=== PATIENT | male | born 1950 | race Caucasian/White ===

== ENCOUNTER 2017-10-14 11:23 | Inpatient (IN) | payer MEDICARE, OTHER ==
[2017-10-14 11:23] VITALS: BMI 19.1
--- NOTE | 2017-10-14 11:33 | C.PDOC ---
History Of Present Illness Patient BIBA s/p witnessed cardiac arrest at hemodialysis. Patient had just started HD, (+) witnessed arrest, CPR started immediately, AED did not recommend shocks. Patient given epi x 2, emergently intubated by medics, given Versed 5mg IVP for sedation (starting to bite tube). Time Seen by Provider: 10/14/17 11:29 Chief Complaint (Nursing): Cardiac Arrest History Per: EMS Reason For Code Blue: Full Arrest Circumstances: Brought To ED By EMS Arrest Witnessed By: Nurse (dialysis) CPR Initiated Prior To MD Arrival?: Yes Down-Time Before ACLS: Mins (15) Treatment Initiated Prior To MD Arrival: Yes: CPR, BVM Ventilations, Intubation , IVF, ACLS Medication Initiation, IV Access Medications Given Prior To MD Arrival: Yes: Epinephrine (x2), Other ([id number] IVP) - Initial Findings Mentation: Unresponsive Respirations: None (Assisted) Pulse: Strong Rhythm: Sinus Rhythm Past Medical History Reviewed: Historical Data, Nursing Documentation, Vital Signs Vital Signs: Last Vital Signs Temp 97.3 F L 10/15/17 00:00 Pulse 66 10/15/17 02:00 Resp 14 10/15/17 02:00 BP 53/24 L 10/15/17 02:00 Pulse Ox 92 L 10/14/17 20:59 - Medical History PMH: Anemia, Anxiety, Arthritis, Asthma, CHF, COPD, Depression, Diabetes, HTN (& hypotension), Hypercholesterolemia, Pneumonia, End Stage Renal Disease, Chronic Kidney Disease Surgical History: Coronary Stent (x2) - [facility] Procedures (08/21/17) BED MOBILITY TREATMENT (12/10/16) CORONAR ARTERIOGR-2 CATH (02/16/15) DETACHMENT AT RIGHT 1ST TOE, LOW, OPEN APPROACH (08/03/17) DETACHMENT AT RIGHT FOOT, PARTIAL 1ST RAY, OPEN APPROACH (09/16/17) DETACHMENT AT RIGHT FOOT, PARTIAL 2ND RAY, OPEN APPROACH (09/16/17) DETACHMENT AT RIGHT FOOT, PARTIAL 3RD RAY, OPEN APPROACH (09/16/17) DETACHMENT AT RIGHT FOOT, PARTIAL 4TH RAY, OPEN APPROACH (09/16/17) DETACHMENT AT RIGHT FOOT, PARTIAL 5TH RAY, OPEN APPROACH (09/16/17) DIALYSIS ARTERIOVENOSTOM (09/14/13) DILATION OF R ANT TIB ART WITH 2 DRUG-ELUT, PERC APPROACH (08/03/17) DRESSING TECHNIQUES TREATMENT (08/08/17) ESOPHAGOGASTRODUODENOSCOPY [EGD] W/CLOSED BIOPSY (09/14/13) EXERCISE TREATMENT OF MUSCULOSK LOW BACK/LE USING OTH EQUIP (12/10/16) FLUOROSCOPY OF AORTA, BI LE ART USING OTH CONTRAST (08/03/17) GAIT TRAINING/AMBULAT TREATMENT USING ASSIST EQUIPMENT (08/08/17) GROOMING/PERSONAL HYGIENE TREATMENT (08/08/17) HEMODIALYSIS (09/14/13) HOME MANAGEMENT TREATMENT USING ASSIST EQUIPMENT (12/10/16) INJECT/INFUSE PLATELET INHIBITOR (07/11/14) INSERTION OF INFUSION DEV INTO SUP VENA CAVA, PERC APPROACH (07/19/17) INSERTION OF ONE VASCULAR STENT (07/11/14) INSPECTION OF UPPER INTESTINAL TRACT, ENDO (04/14/16) INSRT OF DRUG-ELUTING CORON ARTERY STENTS(S) (07/11/14) INTRODUCE OF OTH THERAP SUBST INTO RESP TRACT, VIA OPENING (08/03/17) LEFT HEART CARDIAC CATH (02/16/15) LT HEART ANGIOCARDIOGRAM (02/16/15) NEBULIZER THERAPY (07/11/14) PERCUTANEOUS TRANSLUMINAL CORONARY ANGIOPLASTY [PTCA] (07/11/14) PERFORMANCE OF URINARY FILTRATION, MULTIPLE (02/10/17) PERFORMANCE OF URINARY FILTRATION, SINGLE (01/04/17) PROCEDURE ON SINGLE VESSEL (07/11/14) THERAPEUTIC EXERCISE TREATMENT OF MUSCULOSK WHOLE (08/08/17) ULTRASONOGRAPHY OF SUPERIOR VENA CAVA, GUIDANCE (07/19/17) Family History: States: No Known Family Hx - Social History Hx Tobacco Use: No Hx Alcohol Use: No Hx Substance Use: No - Immunization History Hx Tetanus Toxoid Vaccination: No Hx Influenza Vaccination: No Hx Pneumococcal Vaccination: No Review Of Systems Review Of Systems: ROS cannot be obtained secondary to pt's inabilty to answer questions. Physical Exam - Physical Exam Appears: Other Skin: Other (chronic skin changes B/L LEs) Head: Atraumatic, Normacephalic Eye(s): right: Other (right pupil irregular and nonreactive), left: Normal Inspection Oral Mucosa: Moist, Other (ET tube in place, 24cm at lip) Cardiovascular: Rhythm Regular Respiratory: Other (equal breath sounds B/L ) Gastrointestinal/Abdominal: Normal Exam, Bowel Sounds, Soft, No Tenderness Extremity: Pedal Edema (+2 pitting edema B/L LEs), Other (dressings on feet B/L ) ED Course And Treatment - Laboratory Results Result Diagrams: 10/15/17 01:42 10/15/17 01:42 ECG: Interpreted By Me, Viewed By Me (NSR 85 bpm, low voltage QRS, Q waves II, III, aVF, no acute ST changes) ECG Interpretation: Abnormal O2 Sat by Pulse Oximetry: 100 (FiO2 100) Pulse Ox Interpretation: Normal - Radiology CXR: Interpreted by Me, Viewed By Me (right mainstem intubation, OG below diaphragm - tube pulled back 2cm by me) Progress Note: Blood work, EKG, CXR, CT head ordered and reviewed. OG tube inserted by me, (+) epigastric gurgle auscultated - CXR pending. Prior to going to CT scan, patient began to have bradycardia (given atropine 0.5mg) and then lost pulse. CPR started, epi x 1 and bicarb x 1 given. (+) ROSC after 1 round. IV dopamine started via peripheral line. Patient's BP continued to drop , right sided femoral central line placed by me for pressors - IV Levophed started. Dr. Donovan automotive wholesale parts advisor spoken with and accepts patient for ICU admission. - Physician Consult Information Physician Contacted: Jasmeet Gr Outcome Of Conversation: Spoke with PMD, agrees with admission to his service with Dr. Chavarria for cardiology. Disposition - Disposition Disposition: HOSPITALIZED Disposition Time: 12:18 Condition: CRITICAL - Clinical Impression Clinical Impression: Cardiac arrest, ESRD on dialysis, Signs of return of spontaneous circulation Decision To Admit - Pt Status Changed To: Hospital Disposition Of: Inpatient - Admit Certification Admit to Inpatient:: After my assessment, the patient will require hospitalization for at least two midnights. This is because of the severity of symptoms shown, intensity of services needed, and/or the medical risk in this patient being treated as an outpatient. - InPatient: Physician Admission Certification:: see notes - . Bed Request Type: ICU Admitting Physician: Jasmeet Gr Patient Diagnosis: Cardiac arrest, ESRD on dialysis, Signs of return of spontaneous circulation
[2017-10-14 11:38] LABS: BASO # 0.1 K/uL (0.0-0.2); BASO % 0.6 % (0.0-2.0); EOS % 0.4 % (0.0-4.0); HEMOGLOBIN 9.1 g/dL (12.0-18.0); LYMPH # 1.6 K/uL (1.0-4.3); LYMPH % 15.4 % (20.0-40.0); MEAN CORPUSCULAR HEMOGLOBIN 30.1 pg (27.0-31.0); MEAN CORPUSCULAR HGB CONC 31.8 g/dL (33.0-37.0); MONO # 0.6 K/uL (0.0-0.8); NEUT % 77.6 % (50.0-75.0); NRBC % 0.1 % (0.0-2.0); RBC 3.03 Mil/uL (4.40-5.90); RED CELL DISTRIBUTION WIDTH 18.2 % (11.5-14.5); WHITE BLOOD COUNT 10.3 K/uL (4.8-10.8)
[2017-10-14 11:45] LABS: MEAN CELL VOLUME 94.5 fL (80.0-94.0)
[2017-10-14 11:48] LABS: INR 1.4
[2017-10-14] MEDS ORDERED: Propofol 10 mg/ml 1,000 MG/100 ML VIAL IV STA (11:49)
[2017-10-14] MEDS ORDERED: Propofol 10 mg/ml 1,000 MG/100 ML VIAL ONE (11:54)
[2017-10-14 12:02] LABS: ALB/GLOB RATIO 0.9 (1.0-2.1); ALBUMIN 2.7 g/dL (3.5-5.0); CALCIUM 7.7 mg/dl (8.6-10.4)
[2017-10-14] MEDS ORDERED: DOPamine 400mg/250ml D5W 400 MG/250 ML BAG IV ONE (12:04)
[2017-10-14] MEDS ORDERED: Sodium Bicarbonate (8.4%) 50 Meq Syringe ONE (12:06)
[2017-10-14 12:15] LABS: CK-MB 3.23 ng/mL (0.0-3.38); TROPONIN I 0.088 ng/mL (0.00-0.120)
[2017-10-14] MEDS ORDERED: DOPamine 400mg/250ml D5W 400 MG/250 ML BAG IV STA (12:25)
[2017-10-14 12:31] LABS: ARTERIAL BLOOD GAS HCO3 24.8 mmol/L (21-28); ARTERIAL BLOOD GAS O2 SAT 99.5 % (95-98); ARTERIAL BLOOD GAS PCO2 38 mm/Hg (35-45); ARTERIAL BLOOD GAS PH 7.41 (7.35-7.45); ARTERIAL BLOOD GAS PO2 493 mm/Hg (80-100); ARTERIAL BLOOD GAS TCO2 25.3 mmol/L (22-28)
--- NOTE | 2017-10-14 13:17 | RAD ---
PROCEDURE: CHEST RADIOGRAPH, 1 VIEW HISTORY: cardiac arrest COMPARISON: 09/16/2013. FINDINGS: The endotracheal tube terminates in the right mainstem bronchus. The nasogastric tube terminates in the stomach. LUNGS: The lungs are well inflated. There are small calcified granulomas in the upper lobes. No focal consolidation. PLEURA: No pneumothorax or pleural fluid seen. CARDIOVASCULAR: Normal. OSSEOUS STRUCTURES: No significant abnormalities. VISUALIZED UPPER ABDOMEN: Normal. OTHER FINDINGS: None. IMPRESSION: Endotracheal tube terminates in the right mainstem bronchus. Repositioning is recommended. No acute findings.
--- NOTE | 2017-10-14 13:30 | CP.PCM.CON ---
<Cinda Kelley - Last Filed: 10/14/17 17:48> History of Present Illness - History of Present Illness History of Present Illness: ICU Consult Note: Patient is a 67 year old Male with past medical history of ESRD on HD (TTS), Diabetes mellitus, peripheral arterial disease, Hypotension, chronic anemia was brought to [facility] via EMS s/p Cardiac arrest. Per ED documentation, patient was about to start HD session when he had a witnessed cardiac arrest. CPR was initiated. He received epi x 3 doses with ROSC. Patient was intubated and tonya to [facility]. While in the ED, waiting for CT scan, patient lost pulses again. He was coded, receieved 1 epi, 1 bicarbwith return of ROSC. He was started on dopamine for hypotension. At this time patient is intubated and sedated on diprivan. No family is at the bedside, history limited. Allergies: NKDA Medical History: ESRD on HD, Diabetes Mellitus, PAD, Hypotension, chronic anemia , BPH, CAD with 2 stents Medications: Renegel 800mg TID, Midodrine 1 tab PO TID, Prozac 20mg PO daily, Flomax 0.4mg PO daily, Coreg 25mg PO BID, Januvia 25mg PO daily Surgical History: Right transmetatarsal amputation (09/18/17), Bilateral SFA stents Social History: Former smoker Past Patient History - Infectious Disease Hx of Infectious Diseases: None - Tetanus Immunizations Tetanus Immunization: Unknown - Past Medical History & Family History Past Medical History?: Yes - Past Social History Smoking Status: Former Smoker - CARDIAC Hx Congestive Heart Failure: Yes Hx Hypercholesterolemia: Yes Hx Hypertension: Yes (&hypotension) - PULMONARY Hx Asthma: Yes Hx Chronic Obstructive Pulmonary Disease (COPD): Yes Hx Pneumonia: Yes - NEUROLOGICAL Hx Neurological Disorder: No - HEENT Hx HEENT Problems: Yes (diabetic retinopathy) Hx Blind: Yes (R eye) - RENAL Hx Chronic Kidney Disease: Yes - ENDOCRINE/METABOLIC Hx Endocrine Disorders: Yes Hx Diabetes Mellitus Type 2: Yes - HEMATOLOGICAL/ONCOLOGICAL Hx Anemia: Yes - INTEGUMENTARY Hx Dermatological Problems: Yes Other/Comment: hx of wounds due to diabetes multiple skin discolorations and dry skin both legs, pressure ulcer to sacrum - MUSCULOSKELETAL/RHEUMATOLOGICAL Hx Arthritis: Yes - GASTROINTESTINAL Hx Gastrointestinal Disorders: Yes Hx Constipation: Yes Hx Gastroesophageal Reflux: Yes Other/Comment: constipation - GENITOURINARY/GYNECOLOGICAL Hx Genitourinary Disorders: No - PSYCHIATRIC Hx Anxiety: Yes Hx Depression: Yes Hx Substance Use: No - SURGICAL HISTORY Hx Coronary Stent: Yes (x2) - ANESTHESIA Hx Anesthesia: Yes Hx Anesthesia Reactions: No Hx Malignant Hyperthermia: No Meds Allergies/Adverse Reactions: Allergies Allergy/AdvReac Type Severity Reaction Status Date / Time No Known Allergies Allergy Verified 10/14/17 11:46 - Medications Medications: Current Medications Norepinephrine Bitartrate 4 mg (/ Sodium Chloride) 254 mls @ 15.24 mls/hr IV .[id number] PRN; Protocol; 4 MCG/MIN PRN Reason: TITRATE PER MD ORDER Fentanyl Citrate 2,500 mcg/ (Sodium Chloride) 250 mls @ 13.6 mls/hr IV .[id number] ONE; 2 MCG/KG/HR PRN Reason: Protocol Stop: 10/15/17 07:52 Physical Exam - Constitutional Appears: Chronically Ill Additional comments: Intubated and sedated - Head Exam Head Exam: ATRAUMATIC, NORMAL INSPECTION, NORMOCEPHALIC - Eye Exam Pupil Exam: Irregular Additional comments: Left pupil reactive to light; right pupil not reactive - ENT Exam ENT Exam: Mucous Membranes Moist - Respiratory Exam Respiratory Exam: Decreased Breath Sounds, NORMAL BREATHING PATTERN - Cardiovascular Exam Cardiovascular Exam: REGULAR RHYTHM, +S1, +S2 - GI/Abdominal Exam GI & Abdominal Exam: Normal Bowel Sounds, Soft. absent: Tenderness - Extremities Exam Extremities exam: Positive for: pedal edema Additional comments: AV shunt in left forearm - Expanded Lower Extremities Exam Right Foot/Toe exam: amputation (Right transmetatarsal amputation) - Neurological Exam Additional comments: Intubated and sedated Results - Vital Signs Recent Vital Signs: Last Vital Signs Temp 95.1 F L 10/14/17 11:36 Pulse 87 10/14/17 13:27 Resp 14 10/14/17 13:27 BP 64/38 L 10/14/17 13:27 Pulse Ox 90 L 10/14/17 13:27 - Labs Result Diagrams: 10/14/17 11:32 10/14/17 11:32 Labs: Laboratory Results - last 24 hr 10/14/17 10/14/17 10/14/17 11:32 11:32 11:32 WBC 10.3 RBC 3.03 L Hgb 9.1 L Hct 28.6 L MCV 94.5 H D MCH 30.1 MCHC 31.8 L RDW 18.2 H Plt Count 118 L MPV 9.0 Neut % (Auto) 77.6 H Lymph % (Auto) 15.4 L [place] % (Auto) 6.0 Eos % (Auto) 0.4 Baso % (Auto) 0.6 Neut # (Auto) 8.0 H Lymph # (Auto) 1.6 [place] # (Auto) 0.6 Eos # (Auto) 0.0 Baso # (Auto) 0.1 Differential Comment PT 16.0 H INR 1.4 APTT 48 H Puncture Site pCO2 pO2 HCO3 ABG pH ABG Total CO2 ABG O2 Saturation ABG Base Excess Loy Test ABG Potassium A-a O2 Difference Respiratory Index Glucose Lactate Vent Mode Mechanical Rate FiO2 Tidal Volume PEEP Crit Value Called To Crit Value Called By Crit Value Read Back Blood Gas Notified Time Sodium 128 L Potassium 5.2 Chloride 90 L Carbon Dioxide 23 Anion Gap 20 BUN 91 H Creatinine 5.4 H Est GFR ( Amer) 13 Est GFR (Non-Af Amer) 11 POC Glucose (mg/dL) Random Glucose 96 Calcium 7.7 L Total Bilirubin 1.1 AST 40 ALT 21 D Alkaline Phosphatase 199 H Total Creatine Kinase 88 CK-MB (Mass) 3.23 Troponin I 0.0880 Total Protein 5.5 L Albumin 2.7 L Globulin 2.8 Albumin/Globulin Ratio 0.9 L Arterial Blood Potassium 10/14/17 10/14/17 11:36 12:27 WBC RBC Hgb Hct MCV MCH MCHC RDW Plt Count MPV Neut % (Auto) Lymph % (Auto) [place] % (Auto) Eos % (Auto) Baso % (Auto) Neut # (Auto) Lymph # (Auto) [place] # (Auto) Eos # (Auto) Baso # (Auto) Differential Comment PT INR APTT Puncture Site Rf pCO2 38 pO2 493 H HCO3 24.8 ABG pH 7.41 ABG Total CO2 25.3 ABG O2 Saturation 99.5 H ABG Base Excess -0.3 Loy Test Na ABG Potassium 4.1 A-a O2 Difference 173.0 Respiratory Index 0.4 Glucose 82 Lactate 6.2 H* Vent Mode Prvc Mechanical Rate 14 FiO2 100.0 Tidal Volume 450 PEEP 5 Crit Value Called To Dr starr robert Crit Value Called By Jnaki ortega dog behaviorist Crit Value Read Back Y Blood Gas Notified Time 1232 Sodium 132.0 Potassium Chloride 98.0 Carbon Dioxide Anion Gap BUN Creatinine Est GFR ( Amer) Est GFR (Non-Af Amer) POC Glucose (mg/dL) 98 Random Glucose Calcium Total Bilirubin AST ALT Alkaline Phosphatase Total Creatine Kinase CK-MB (Mass) Troponin I Total Protein Albumin Globulin Albumin/Globulin Ratio Arterial Blood Potassium 4.1 Assessment & Plan - Assessment and Plan (Free Text) Assessment: Patient is a 67 year old Male with past medical history of ESRD on HD (TTS), Diabetes mellitus, peripheral arterial disease, Hypotension, chronic anemia was brought to [facility] via EMS s/p Cardiac arrest. While in the ED, patient went bradycardic and lost pulse again. CPR was initiated, epi x 1 and bicarb x 1 given with ROSC. Now admitted to the ICU for further monitoring. Neurology: -Intubated and sedated with Diprivan -CT head showed no acute intracranial abnormality. mild chronic microangiopathic changes and moderate age-related global parenchymal volume loss -Patient hypothermic with rectal temp of 94.5 -Rich hugger as needed Cardiology: -Patient started on levophed and dopamine for hypotension -Diprivan discontinued, fentanyl ordered -Trend Cardiac enzymes q6H, f/u TSH -BNP 323,000 -Echo ordered, f/u official report -Cardiology on consult, help appreciated Respiratory: -CT angio negative for PE, patchy ground-glass attenuation in the lungs, worse on the right upper and middle lobes could be related to aspiration pneumonitis; small right and trace left pleural effusions and moderate abdominal ascites -Intubated and sedated -STAT ABG ordered -CXR showing ETT in right main bronchus will reposition -Duonebs q6H -Antibiotics: Cefepime 1gm Q24H Endocrine: -Patient with history of diabetes mellitus -Accuchecks q6H, low dose ISS Renal: -History of ESRD on HD TTS -Nephrology on consult, help appreciated Infectious Disease: -Blood cultures, sputum cultures, urine cultures sent -Antibiotics: Cefepime 1gm Q24H -F/U procal and lactic acid GI/DVT ppx : -Pepcid 20mg IVP daily -Heparin 5000 U Q12H <Tej Donovan - Last Filed: 10/14/17 18:33> Meds - Medications Medications: Current Medications Albuterol/Ipratropium (Duoneb 3 Mg/0.5 Mg (3 Ml) Ud) 3 ml INH RQ6 EZEQUIEL Famotidine (Pepcid) 20 mg IVP DAILY [facility] Heparin Sodium (Porcine) (Heparin) 5,000 units SC Q12 [facility] Norepinephrine Bitartrate 4 mg (/ Sodium Chloride) 254 mls @ 15.24 mls/hr IV .[id number] PRN; Protocol; 4 MCG/MIN PRN Reason: TITRATE PER MD ORDER Last Titration: 10/14/17 13:34 Dose: 10 mcg/min, 38.1 mls/hr Fentanyl Citrate 2,500 mcg/ (Sodium Chloride) 250 mls @ 13.6 mls/hr IV .[id number] ONE; 2 MCG/KG/HR PRN Reason: Protocol Stop: 10/15/17 07:52 Last Titration: 10/14/17 14:53 Dose: 3 mcg/kg/hr, 20.41 mls/hr Cefepime HCl 1 gm/ Dextrose 50 mls @ 100 mls/hr IVPB Q24H EZEQUIEL PRN Reason: Protocol Insulin Aspart (Novolog) 0 unit SC ACHS EZEQUIEL PRN Reason: Protocol Results - Vital Signs Recent Vital Signs: Last Vital Signs Temp 94.5 F L 10/14/17 14:50 Pulse 91 H 10/14/17 17:32 Resp 16 10/14/17 17:32 BP 106/47 L 10/14/17 17:32 Pulse Ox 82 L 10/14/17 17:32 - Labs Result Diagrams: 10/14/17 11:32 10/14/17 11:32 Labs: Laboratory Results - last 24 hr 10/14/17 10/14/17 10/14/17 11:32 11:32 11:32 WBC 10.3 RBC 3.03 L Hgb 9.1 L Hct 28.6 L MCV 94.5 H D MCH 30.1 MCHC 31.8 L RDW 18.2 H Plt Count 118 L MPV 9.0 Neut % (Auto) 77.6 H Lymph % (Auto) 15.4 L [place] % (Auto) 6.0 Eos % (Auto) 0.4 Baso % (Auto) 0.6 Neut # (Auto) 8.0 H Lymph # (Auto) 1.6 [place] # (Auto) 0.6 Eos # (Auto) 0.0 Baso # (Auto) 0.1 Differential Comment PT 16.0 H INR 1.4 APTT 48 H Puncture Site pCO2 pO2 HCO3 ABG pH ABG Total CO2 ABG O2 Saturation ABG Base Excess Loy Test ABG Potassium A-a O2 Difference Respiratory Index Glucose Lactate Vent Mode Mechanical Rate FiO2 Tidal Volume PEEP Crit Value Called To Crit Value Called By Crit Value Read Back Blood Gas Notified Time Sodium 128 L Potassium 5.2 Chloride 90 L Carbon Dioxide 23 Anion Gap 20 BUN 91 H Creatinine 5.4 H Est GFR ( Amer) 13 Est GFR (Non-Af Amer) 11 POC Glucose (mg/dL) Random Glucose 96 Calcium 7.7 L Total Bilirubin 1.1 AST 40 ALT 21 D Alkaline Phosphatase 199 H Total Creatine Kinase 88 CK-MB (Mass) 3.23 Troponin I 0.0880 NT-Pro-B Natriuret Pep 401617 H Total Protein 5.5 L Albumin 2.7 L Globulin 2.8 Albumin/Globulin Ratio 0.9 L Arterial Blood Potassium Urine Color Urine Clarity Urine pH Ur Specific [place] Urine Protein Urine Glucose (UA) Urine Ketones Urine Blood Urine Nitrate Urine Bilirubin Urine Urobilinogen Ur Leukocyte Esterase Urine WBC (Auto) Urine RBC (Auto) Urine Bacteria 10/14/17 10/14/17 10/14/17 11:36 12:27 14:06 WBC RBC Hgb Hct MCV MCH MCHC RDW Plt Count MPV Neut % (Auto) Lymph % (Auto) [place] % (Auto) Eos % (Auto) Baso % (Auto) Neut # (Auto) Lymph # (Auto) [place] # (Auto) Eos # (Auto) Baso # (Auto) Differential Comment PT INR APTT Puncture Site Rf pCO2 38 pO2 493 H HCO3 24.8 ABG pH 7.41 ABG Total CO2 25.3 ABG O2 Saturation 99.5 H ABG Base Excess -0.3 Loy Test Na ABG Potassium 4.1 A-a O2 Difference 173.0 Respiratory Index 0.4 Glucose 82 Lactate 6.2 H* Vent Mode Prvc Mechanical Rate 14 FiO2 100.0 Tidal Volume 450 PEEP 5 Crit Value Called To Dr starr robert Crit Value Called By Janki ortega dog behaviorist Crit Value Read Back Y Blood Gas Notified Time 1232 Sodium 132.0 Potassium Chloride 98.0 Carbon Dioxide Anion Gap BUN Creatinine Est GFR ( Amer) Est GFR (Non-Af Amer) POC Glucose (mg/dL) 98 Random Glucose Calcium Total Bilirubin AST ALT Alkaline Phosphatase Total Creatine Kinase CK-MB (Mass) Troponin I NT-Pro-B Natriuret Pep Total Protein Albumin Globulin Albumin/Globulin Ratio Arterial Blood Potassium 4.1 Urine Color Opal Urine Clarity Turbid Urine pH 6.0 Ur Specific [place] 1.012 Urine Protein 3+ H Urine Glucose (UA) 2+ H Urine Ketones Negative Urine Blood 2+ H Urine Nitrate Negative Urine Bilirubin Negative Urine Urobilinogen Normal Ur Leukocyte Esterase 3+ H Urine WBC (Auto) 57 H Urine RBC (Auto) 37 H Urine Bacteria Rare 10/14/17 10/14/17 10/14/17 16:37 17:52 17:54 WBC RBC Hgb Hct MCV MCH MCHC RDW Plt Count MPV Neut % (Auto) Lymph % (Auto) [place] % (Auto) Eos % (Auto) Baso % (Auto) Neut # (Auto) Lymph # (Auto) [place] # (Auto) Eos # (Auto) Baso # (Auto) Differential Comment PT INR APTT Puncture Site Rb pCO2 38 pO2 162 H HCO3 26.3 ABG pH 7.44 ABG Total CO2 27.0 ABG O2 Saturation 99.2 H ABG Base Excess 1.7 Loy Test Na ABG Potassium 4.6 A-a O2 Difference 147.0 Respiratory Index 0.9 Glucose 141 H Lactate 2.0 Vent Mode Prvc Mechanical Rate 14 FiO2 50.0 Tidal Volume 450 PEEP 5 Crit Value Called To Crit Value Called By Crit Value Read Back Blood Gas Notified Time Sodium 129.0 L Potassium Chloride 97.0 L Carbon Dioxide Anion Gap BUN Creatinine Est GFR ( Amer) Est GFR (Non-Af Amer) POC Glucose (mg/dL) 67 126 H Random Glucose Calcium Total Bilirubin AST ALT Alkaline Phosphatase Total Creatine Kinase CK-MB (Mass) Troponin I NT-Pro-B Natriuret Pep Total Protein Albumin Globulin Albumin/Globulin Ratio Arterial Blood Potassium 4.6 Urine Color Urine Clarity Urine pH Ur Specific [place] Urine Protein Urine Glucose (UA) Urine Ketones Urine Blood Urine Nitrate Urine Bilirubin Urine Urobilinogen Ur Leukocyte Esterase Urine WBC (Auto) Urine RBC (Auto) Urine Bacteria Attending/Attestation - Attestation I have personally seen and examined this patient.: Yes I have fully participated in the care of the patient.: Yes I have reviewed all pertinent clinical information: Yes Notes (Text): 10/14/17 18:15 PATIENT SEEN AND EXAMINED 67-year-old male admitted after he had cardiac arrest at dialysis Center status post resuscitation with return of circulation Patient responds to vocal command by opening eyes On ventilatory support Started on IV antibiotics for right upper lung infiltrate Seen by cardiology
[2017-10-14] MEDS ORDERED: Iodixanol 320 MG/ML 100 ML BOTTLE IV ONE (14:11)
[2017-10-14 14:15] LABS: URINE BACTERIA RARE (<OCC); URINE BILIRUBIN NEGATIVE (NEGATIVE); URINE BLOOD 2+ (NEGATIVE); URINE CLARITY Turbid (Clear); URINE COLOR Amber (YELLOW); URINE GLUCOSE (UA) 2+ mg/dL (Normal); URINE LEUKOCYTE ESTERASE 3+ Leu/uL (Negative); URINE PROTEIN 3+ mg/dL (NEGATIVE); URINE UROBILINOGEN NORMAL mg/dL (0.2-1.0)
--- NOTE | 2017-10-14 14:55 | CT ---
PROCEDURE: CT HEAD WITHOUT CONTRAST. HISTORY: s/p cardiac arrest, possible code freeze COMPARISON: None available. TECHNIQUE: Axial computed tomography images were obtained through the head/brain without intravenous contrast. Radiation dose: Total exam DLP = 975.73 mGy-cm. This CT exam was performed using one or more of the following dose reduction techniques: Automated exposure control, adjustment of the mA and/or kV according to patient size, and/or use of iterative reconstruction technique. FINDINGS: HEMORRHAGE: No intracranial hemorrhage. BRAIN: There are mild chronic microangiopathic changes. There is no mass, mass effect or abnormal extra-axial fluid collection. There are senile calcifications in the right basal ganglia. There are coarse atherosclerotic calcifications in the cavernous carotid arteries. VENTRICLES: There is moderate age-related global parenchymal volume loss and proportionate enlargement of the ventricles and cortical sulci. CALVARIUM: The skull base and calvarium are normal. PARANASAL SINUSES: There is mild chronic maxillary and sphenoid sinusitis. MASTOID AIR CELLS: Predominantly clear. OTHER FINDINGS: None. IMPRESSION: No acute intracranial abnormality. Mild chronic microangiopathic changes and moderate age-related global parenchymal volume loss.
--- NOTE | 2017-10-14 15:01 | CT ---
PROCEDURE: CT Chest with contrast (Pulmonary Angiogram) HISTORY: r/o pulmonary embolism COMPARISON: None available. TECHNIQUE: Axial computed tomography images were obtained of the chest in the pulmonary arterial phase of enhancement. Coronal and sagittal reformatted images were created and reviewed. Intravenous contrast dose: 100 mL Visipaque Radiation dose: Total exam DLP = 450.48 mGy-cm. This CT exam was performed using one or more of the following dose reduction techniques: Automated exposure control, adjustment of the mA and/or kV according to patient size, and/or use of iterative reconstruction technique. FINDINGS: The endotracheal tube terminates in the right mainstem bronchus. Repositioning is recommended. The nasogastric tube terminates in the stomach. PULMONARY ARTERIES: There are no filling defects in the pulmonary arteries to suggest acute pulmonary embolism. AORTA: No acute findings. No thoracic aortic aneurysm. LUNGS: There is patchy ground-glass attenuation in the right upper and middle lobes. There is also subtle ground-glass attenuation in the left upper lobe and lingula. There is subsegmental atelectasis in the lower lobes. PLEURAL SPACES: Small right and trace left pleural effusions. No pneumothorax. HEART: Mild cardiomegaly. No significant pericardial effusion. LYMPH NODES: No lymphadenopathy. BONES, CHEST WALL: Unremarkable. No fracture or destructive lesion OTHER FINDINGS: Moderate abdominal ascites. IMPRESSION: No 1. No CTA evidence for acute pulmonary embolism. 2. Patchy ground-glass attenuation in the lungs, worse in the right upper and middle lobes could be related to aspiration pneumonitis. 3. Endotracheal tube terminates in the right mainstem bronchus. Repositioning is recommended. 4. Small right and trace left pleural effusions and moderate abdominal ascites.
[2017-10-14] MEDS ORDERED: (Novolog) Insulin Aspart, Recombinant 100 u/ml 10 ml vial SC SCH (16:30)
[2017-10-14 16:40] LABS: ARTERIAL BLOOD GAS HCO3 26.3 mmol/L (21-28); ARTERIAL BLOOD GAS O2 SAT 99.2 % (95-98); ARTERIAL BLOOD GAS PCO2 38 mm/Hg (35-45); ARTERIAL BLOOD GAS PH 7.44 (7.35-7.45); ARTERIAL BLOOD GAS PO2 162 mm/Hg (80-100)
--- NOTE | 2017-10-14 16:47 | RAD ---
PROCEDURE: CHEST RADIOGRAPH, 1 VIEW HISTORY: AFTER ET TUBE PULL BACK COMPARISON: 10/14/2017 at 11:55 50 hours FINDINGS: LUNGS: Interval increased opacity right upper lobe radiographic progressive infiltrate suggested. PLEURA: No pneumothorax or pleural fluid seen. CARDIOVASCULAR: Mild cardiomegaly. Central pulmonary vasculature appear slightly increased - mild pulmonary venous congestion suspect OSSEOUS STRUCTURES: No significant abnormalities. VISUALIZED UPPER ABDOMEN: NG tube inserted-tip beyond the inferior edge of this image at least courses over the expected stomach OTHER FINDINGS: Endotracheal tube tip repositioned more proximal now projecting approximately 3 cm from the chevy. IMPRESSION: Interval repositioning of the endotracheal tube away from the orifice to the right mainstem bronchus. Now approximately 3 cm from the chevy. Interval progressive right upper lobe infiltrate Mild cardiomegaly. Mild central pulmonary venous congestion suspect -slightly increased in conspicuity NG tube these coursing over expected stomach -tip beyond the inferior edge of this image
--- NOTE | 2017-10-14 16:56 | CP.PCM.CON ---
History of Present Illness - History of Present Illness History of Present Illness: Pt is intubated, cannot give history: As per Dr gardner: Patient is a 67 year old Male with past medical history of ESRD on HD (TTS), Diabetes mellitus, peripheral arterial disease, Hypotension, chronic anemia was brought to [facility] via EMS s/p Cardiac arrest. Per ED documentation, patient was about to start HD session when he had a witnessed cardiac arrest. CPR was initiated. He received epi x 3 doses with ROSC. Patient was intubated and tonya to [facility]. While in the ED, waiting for CT scan, patient lost pulses again. He was coded, received 1 epi, 1 bicarb with return of ROSC. He was started on dopamine for hypotension. At this time patient is intubated and sedated on diprivan. pt just left [facility] yesterday. He had removal of the toes of the right foot three weeks ago. There are no strips in the chart and I do not know if whether the pt had PEA or Vtach, but apparently no shock was given here at . Pt has cad, EF reported to be 35% from last echo. Pt has PAD, bilateral SFA stents. Also coronary PCI: om1 and LCX and LAD not recently. A stress test in 2017 at [facility] prompted a c cath, but stents were open. No recent echo. ECG shows low voltage, lateral ST depression, firs t tni negative. CXR no chf, CT no PE, but ground glass appearance on CT: pt was hypoxic at [facility] and was almost intubated there. Review of Systems - Review of Systems All systems: reviewed and no additional remarkable complaints except (cannot assess, intubated) Past Patient History - Infectious Disease Hx of Infectious Diseases: None - Tetanus Immunizations Tetanus Immunization: Unknown - Past Medical History & Family History Past Medical History?: Yes - Past Social History Smoking Status: Former Smoker - CARDIAC Hx Congestive Heart Failure: Yes Hx Hypercholesterolemia: Yes Hx Hypertension: Yes (&hypotension) - PULMONARY Hx Asthma: Yes Hx Chronic Obstructive Pulmonary Disease (COPD): Yes Hx Pneumonia: Yes - NEUROLOGICAL Hx Neurological Disorder: No - HEENT Hx HEENT Problems: Yes (diabetic retinopathy) Hx Blind: Yes (R eye) - RENAL Hx Chronic Kidney Disease: Yes - ENDOCRINE/METABOLIC Hx Endocrine Disorders: Yes Hx Diabetes Mellitus Type 2: Yes - HEMATOLOGICAL/ONCOLOGICAL Hx Anemia: Yes - INTEGUMENTARY Hx Dermatological Problems: Yes Other/Comment: hx of wounds due to diabetes multiple skin discolorations and dry skin both legs, pressure ulcer to sacrum - MUSCULOSKELETAL/RHEUMATOLOGICAL Hx Arthritis: Yes - GASTROINTESTINAL Hx Gastrointestinal Disorders: Yes Hx Constipation: Yes Hx Gastroesophageal Reflux: Yes Other/Comment: constipation - GENITOURINARY/GYNECOLOGICAL Hx Genitourinary Disorders: No - PSYCHIATRIC Hx Anxiety: Yes Hx Depression: Yes Hx Substance Use: No - SURGICAL HISTORY Hx Coronary Stent: Yes (x2) - ANESTHESIA Hx Anesthesia: Yes Hx Anesthesia Reactions: No Hx Malignant Hyperthermia: No Meds Allergies/Adverse Reactions: Allergies Allergy/AdvReac Type Severity Reaction Status Date / Time No Known Allergies Allergy Verified 10/14/17 11:46 - Medications Medications: Current Medications Famotidine (Pepcid) 20 mg IVP DAILY [facility] Heparin Sodium (Porcine) (Heparin) 5,000 units SC Q12 EZE[facility] Norepinephrine Bitartrate 4 mg (/ Sodium Chloride) 254 mls @ 15.24 mls/hr IV .[id number] PRN; Protocol; 4 MCG/MIN PRN Reason: TITRATE PER MD ORDER Last Titration: 10/14/17 13:34 Dose: 10 mcg/min, 38.1 mls/hr Fentanyl Citrate 2,500 mcg/ (Sodium Chloride) 250 mls @ 13.6 mls/hr IV .[id number] ONE; 2 MCG/KG/HR PRN Reason: Protocol Stop: 10/15/17 07:52 Last Titration: 10/14/17 14:53 Dose: 3 mcg/kg/hr, 20.41 mls/hr Insulin Aspart (Novolog) 0 unit SC ACHS E[facility] PRN Reason: Protocol Physical Exam - Constitutional Appears: Chronically Ill - Head Exam Head Exam: ATRAUMATIC - ENT Exam ENT Exam: Mucous Membranes Dry - Respiratory Exam Respiratory Exam: Clear to Auscultation Bilateral - Cardiovascular Exam Cardiovascular Exam: REGULAR RHYTHM - GI/Abdominal Exam GI & Abdominal Exam: Normal Bowel Sounds - Exam External exam: NORMAL EXTERNAL EXAM (right toes amputated) - Neurological Exam Neurological exam: Altered (pt has eyes open, not purposely, thrashing arms abotu randomlt, not alert) - Skin Skin Exam: Normal Color Results - Vital Signs Recent Vital Signs: Last Vital Signs Temp 95.1 F L 10/14/17 11:36 Pulse 109 H 03/27/18 14:30 Resp 20 10/14/17 14:30 BP 130/48 L 10/14/17 14:30 Pulse Ox 95 10/14/17 14:30 - Labs Result Diagrams: 10/14/17 11:32 10/14/17 11:32 Labs: Laboratory Results - last 24 hr 10/14/17 10/14/17 10/14/17 11:32 11:32 11:32 WBC 10.3 RBC 3.03 L Hgb 9.1 L Hct 28.6 L MCV 94.5 H D MCH 30.1 MCHC 31.8 L RDW 18.2 H Plt Count 118 L MPV 9.0 Neut % (Auto) 77.6 H Lymph % (Auto) 15.4 L [place] % (Auto) 6.0 Eos % (Auto) 0.4 Baso % (Auto) 0.6 Neut # (Auto) 8.0 H Lymph # (Auto) 1.6 [place] # (Auto) 0.6 Eos # (Auto) 0.0 Baso # (Auto) 0.1 Differential Comment PT 16.0 H INR 1.4 APTT 48 H Puncture Site pCO2 pO2 HCO3 ABG pH ABG Total CO2 ABG O2 Saturation ABG Base Excess Loy Test ABG Potassium A-a O2 Difference Respiratory Index Glucose Lactate Vent Mode Mechanical Rate FiO2 Tidal Volume PEEP Crit Value Called To Crit Value Called By Crit Value Read Back Blood Gas Notified Time Sodium 128 L Potassium 5.2 Chloride 90 L Carbon Dioxide 23 Anion Gap 20 BUN 91 H Creatinine 5.4 H Est GFR ( Amer) 13 Est GFR (Non-Af Amer) 11 POC Glucose (mg/dL) Random Glucose 96 Calcium 7.7 L Total Bilirubin 1.1 AST 40 ALT 21 D Alkaline Phosphatase 199 H Total Creatine Kinase 88 CK-MB (Mass) 3.23 Troponin I 0.0880 NT-Pro-B Natriuret Pep 947298 H Total Protein 5.5 L Albumin 2.7 L Globulin 2.8 Albumin/Globulin Ratio 0.9 L Arterial Blood Potassium Urine Color Urine Clarity Urine pH Ur Specific [place] Urine Protein Urine Glucose (UA) Urine Ketones Urine Blood Urine Nitrate Urine Bilirubin Urine Urobilinogen Ur Leukocyte Esterase Urine WBC (Auto) Urine RBC (Auto) Urine Bacteria 10/14/17 10/14/17 10/14/17 11:36 12:27 14:06 WBC RBC Hgb Hct MCV MCH MCHC RDW Plt Count MPV Neut % (Auto) Lymph % (Auto) [place] % (Auto) Eos % (Auto) Baso % (Auto) Neut # (Auto) Lymph # (Auto) [place] # (Auto) Eos # (Auto) Baso # (Auto) Differential Comment PT INR APTT Puncture Site Rf pCO2 38 pO2 493 H HCO3 24.8 ABG pH 7.41 ABG Total CO2 25.3 ABG O2 Saturation 99.5 H ABG Base Excess -0.3 Loy Test Na ABG Potassium 4.1 A-a O2 Difference 173.0 Respiratory Index 0.4 Glucose 82 Lactate 6.2 H* Vent Mode Prvc Mechanical Rate 14 FiO2 100.0 Tidal Volume 450 PEEP 5 Crit Value Called To Dr starr robert Crit Value Called By Janki ortega manager diesel Crit Value Read Back Y Blood Gas Notified Time 1232 Sodium 132.0 Potassium Chloride 98.0 Carbon Dioxide Anion Gap BUN Creatinine Est GFR ( Amer) Est GFR (Non-Af Amer) POC Glucose (mg/dL) 98 Random Glucose Calcium Total Bilirubin AST ALT Alkaline Phosphatase Total Creatine Kinase CK-MB (Mass) Troponin I NT-Pro-B Natriuret Pep Total Protein Albumin Globulin Albumin/Globulin Ratio Arterial Blood Potassium 4.1 Urine Color Opal Urine Clarity Turbid Urine pH 6.0 Ur Specific [place] 1.012 Urine Protein 3+ H Urine Glucose (UA) 2+ H Urine Ketones Negative Urine Blood 2+ H Urine Nitrate Negative Urine Bilirubin Negative Urine Urobilinogen Normal Ur Leukocyte Esterase 3+ H Urine WBC (Auto) 57 H Urine RBC (Auto) 37 H Urine Bacteria Rare 10/14/17 16:37 WBC RBC Hgb Hct MCV MCH MCHC RDW Plt Count MPV Neut % (Auto) Lymph % (Auto) [place] % (Auto) Eos % (Auto) Baso % (Auto) Neut # (Auto) Lymph # (Auto) [place] # (Auto) Eos # (Auto) Baso # (Auto) Differential Comment PT INR APTT Puncture Site Rb pCO2 38 pO2 162 H HCO3 26.3 ABG pH 7.44 ABG Total CO2 27.0 ABG O2 Saturation 99.2 H ABG Base Excess 1.7 Loy Test Na ABG Potassium 4.6 A-a O2 Difference 147.0 Respiratory Index 0.9 Glucose 141 H Lactate 2.0 Vent Mode Prvc Mechanical Rate 14 FiO2 50.0 Tidal Volume 450 PEEP 5 Crit Value Called To Crit Value Called By Crit Value Read Back Blood Gas Notified Time Sodium 129.0 L Potassium Chloride 97.0 L Carbon Dioxide Anion Gap BUN Creatinine Est GFR ( Amer) Est GFR (Non-Af Amer) POC Glucose (mg/dL) Random Glucose Calcium Total Bilirubin AST ALT Alkaline Phosphatase Total Creatine Kinase CK-MB (Mass) Troponin I NT-Pro-B Natriuret Pep Total Protein Albumin Globulin Albumin/Globulin Ratio Arterial Blood Potassium 4.6 Urine Color Urine Clarity Urine pH Ur Specific [place] Urine Protein Urine Glucose (UA) Urine Ketones Urine Blood Urine Nitrate Urine Bilirubin Urine Urobilinogen Ur Leukocyte Esterase Urine WBC (Auto) Urine RBC (Auto) Urine Bacteria - EKG Data EKG Interpreted by: Myself (as above) Assessment & Plan - Assessment and Plan (Free Text) Assessment: 1. So far, ECG and TNI not c/w ACS. Dialysis pts often have toxic metabolic derangements resulting in cadia arrest. Josh pt is still in shock on pressors. 2. Serial tni. 3. Echo to assess for pericardial effusion. not reported on CT, but low voltage on ecg. TSH 4. Supportive care. pt is critical.
[2017-10-14] MEDS: Albuterol-Ipratrop 3 mg / 0.5 (3 ml) UD INH SCH (19:20)
[2017-10-14 19:30] LABS: TROPONIN I 0.318 ng/mL (0.00-0.120)
[2017-10-14 21:10] VITALS: RESP 14
[2017-10-14] MEDS ORDERED: DOPamine 400mg/250ml D5W 400 MG/250 ML BAG IV PRN ×2 (21:13→23:48)
[2017-10-14] MEDS ORDERED: Sodium Chloride 0.9% 500 ML IV ONE (23:36)
[2017-10-14] MEDS ORDERED: Albumin Human 25% (12.5 gm/50 ml) IV ONE (23:37)
[2017-10-15] MEDS ORDERED: (Novolog) Insulin Aspart, Recombinant 100 u/ml 10 ml vial SC SCH
[2017-10-15] MEDS ORDERED: Dextrose 50% SYRINGE Inj (50 ml) ONE ×2 (01:05→02:59)
[2017-10-15] MEDS ORDERED: Glucagon Recombinant 1 mg Inj ONE (01:05)
[2017-10-15] MEDS ORDERED: EPINEPHrine 1 mg/ml (1:1000) Inj ONE (01:05)
[2017-10-15] MEDS ORDERED: Calcium Gluconate 4.65 mEq/10 ml Inj ONE (01:05)
[2017-10-15] MEDS ORDERED: Sodium Bicarbonate (8.4%) 50 mEq Vial ONE (01:05)
[2017-10-15] MEDS ORDERED: DOPamine 400mg/250ml D5W IV ONE (01:05)
[2017-10-15 01:32] LABS: ARTERIAL BLOOD GAS HCO3 21.5 mmol/L (21-28); ARTERIAL BLOOD GAS HEMOGLOBIN 8.2 g/dL (11.7-17.4); ARTERIAL BLOOD GAS PCO2 32 mm/Hg (35-45); ARTERIAL BLOOD GAS PO2 527 mm/Hg (80-100); ARTERIAL BLOOD GAS TCO2 20.8 mmol/L (22-28)
[2017-10-15] MEDS: Albuterol-Ipratrop 3 mg / 0.5 (3 ml) UD INH SCH (01:40)
[2017-10-15 01:45] LABS: BASO % 0.1 % (0.0-2.0); HEMOGLOBIN 7.1 g/dL (12.0-18.0); LYMPH # 1.4 K/uL (1.0-4.3); LYMPH % 12.2 % (20.0-40.0); MEAN CELL VOLUME 94.9 fL (80.0-94.0); MEAN CORPUSCULAR HEMOGLOBIN 29.5 pg (27.0-31.0); MEAN PLATELET VOLUME 10.5 fL (7.2-11.7); MONO # 0.4 K/uL (0.0-0.8); MONO % 3.6 % (0.0-10.0); NEUT # 9.5 K/uL (1.8-7.0); NEUT % 84.1 % (50.0-75.0); NRBC % 0.1 % (0.0-2.0); RBC 2.4 Mil/uL (4.40-5.90); RED CELL DISTRIBUTION WIDTH 18.2 % (11.5-14.5); WHITE BLOOD COUNT 11.3 K/uL (4.8-10.8)
--- NOTE | 2017-10-15 01:50 | PCM.RRT ---
LASTING FLOORWORKER Nurses Assessment - Situation Date: 10/15/17 Time LASTING FLOORWORKER was called: 01:05 LASTING FLOORWORKER Responder Arrival Time:: 01:08 LASTING FLOORWORKER Location:: 9I ICU LASTING FLOORWORKER Reason for Call: Bradycardia LASTING FLOORWORKER Called By: RN - Ventilator Settings FIO2 (% Oxygen): 50 - Constitutional Appears: In Acute Distress, Chronically Ill Plan - Assessment of Findings&Treatment Plan Code Blue was called by RN because patient became hypotensive and hussain. Patient's blood sugar was found to be <40. Patient was given 3 epi, 2 bicarb, 2 D50. Patient was shocked once. Patient regained pulse. Repeat cbc, cmp and ABG was ordered. Chest Xray was ordered.
[2017-10-15 01:58] LABS: ALB/GLOB RATIO 0.9 (1.0-2.1); ALBUMIN 1.7 g/dL (3.5-5.0); CALCIUM 6.5 mg/dl (8.6-10.4)
[2017-10-15] MEDS ORDERED: Sodium Chloride 0.9% 500 ML IV ONE (02:07)
[2017-10-15] MEDS ORDERED: Albumin Human 25% (12.5 gm/50 ml) IV ONE (02:07)
[2017-10-15 02:16] LABS: CK-MB 6.43 ng/mL (0.0-3.38); TROPONIN I 1.17 ng/mL (0.00-0.120)
[2017-10-15] MEDS ORDERED: EPINEPHrine- 1 MG in Sodium Chloride 0.9% 250 ML IV PRN (02:26)
[2017-10-15] MEDS ORDERED: Sodium Bicarbonate (8.4%) 50 Meq Syringe ONE ×2 (02:44→02:51)
[2017-10-15] MEDS ORDERED: (Novolin R) Insulin Human Regular 100 units/ml vial ONE (03:02)
[2017-10-15 03:18] LABS: VENOUS BLOOD GAS BASE EXCESS -19.3 mmol/L (0.0-2.0); VENOUS BLOOD GAS PCO2 34 mmHg (40-60); VENOUS BLOOD GAS PO2 28 mm/Hg (30-55); VENOUS BLOOD PH 7.07 (7.32-7.43)
--- NOTE | 2017-10-15 03:59 | CP.PCM.PN ---
Subjective - Date & Time of Evaluation Date of Evaluation: 10/15/17 Time of Evaluation: 03:47 - Subjective Subjective: Patient had 1st cardiac arrest 1:03-2:13, BP remained 170/[address] code, stat labs drawn, Na 126, K 5.4, ph 7.4, po2 > 500, glucose low post code but improved in ABG blood. In about 15-20 mins bp and hr both started to go low, and patient was maxed on dopamine and levophed. Atropine also given, glucogon 2mg also given as patient was on high dose betablocker, hypotension hussain cardia persisted, patient given an amp of epinephrine. Around 2:23 patient was pulse less again and Code called, performed with ACLS protocol, given, epi, bicarb, off and on for very brief duration pulse obtained but quickly lost, cpr , patient also put on external pacemaker. About 2:45 am code called off but BP remained low, patient was started on epi drip, and was on high dose dopamine and levophed, with no response in bp. Spoke to and explained that the BP was not responding and if persist like that the cpr will be futile, the requested us to use our judgement including to stop/or no cpr if clinically it is futile. Patient was continued on the drips, external pacer, but no improvement in BP, eventually became bradycardic and PEA. Patient pronounced at 3:23am. arrived to the hospital about 3:30 am who I informed. pronounced and would be registered in [facility]. Objective - Vital Signs/Intake and Output Vital Signs (last 24 hours): Temp Pulse Resp BP Pulse Ox 97.5 F L 103 H 14 135/64 92 L 10/14/17 18:30 10/14/17 21:15 10/14/17 21:15 10/14/17 21:15 10/14/17 20:59 Intake and Output: 10/14/17 10/15/17 18:59 06:59 Intake Total 470.1 790.7 Output Total 0 0 Balance 470.1 790.7 - Medications Medications: Current Medications Albuterol/Ipratropium (Duoneb 3 Mg/0.5 Mg (3 Ml) Ud) 3 ml INH RQ6 EZEQUIEL Last Admin: 10/15/17 01:40 Dose: 3 ml Famotidine (Pepcid) 20 mg IVP DAILY [facility] Last Admin: 10/14/17 22:00 Dose: 20 mg Heparin Sodium (Porcine) (Heparin) 5,000 units SC Q12 [facility] Last Admin: 10/14/17 22:00 Dose: 5,000 units Norepinephrine Bitartrate 4 mg (/ Sodium Chloride) 254 mls @ 15.24 mls/hr IV .[id number] PRN; Protocol; 4 MCG/MIN PRN Reason: TITRATE PER MD ORDER Last Admin: 10/14/17 20:59 Dose: 10 mcg/min, 38.1 mls/hr Fentanyl Citrate 2,500 mcg/ (Sodium Chloride) 250 mls @ 13.6 mls/hr IV .[id number] ONE; 2 MCG/KG/HR PRN Reason: Protocol Stop: 10/15/17 07:52 Last Titration: 10/14/17 14:53 Dose: 3 mcg/kg/hr, 20.41 mls/hr Cefepime HCl 1 gm/ Dextrose 50 mls @ 100 mls/hr IVPB Q24H [facility] PRN Reason: Protocol Last Admin: 10/14/17 18:20 Dose: 100 mls/hr Dopamine HCl/Dextrose (Dopamine 400mg/250ml D5w) 400 mg in 250 mls @ 29.925 mls /hr IV .[id number] PRN; Protocol; 15 MCG/KG/MIN PRN Reason: TITRATE PER MD ORDER Last Admin: 10/14/17 21:15 Dose: 15 mcg/kg/min, 29.925 mls/hr Epinephrine HCl 1 mg/ Sodium (Chloride) 251 mls @ 15.06 mls/hr IV .[id number] PRN ; Protocol; 1 MCG/MIN PRN Reason: TITRATE PER MD ORDER Insulin Aspart (Novolog) 0 unit SC Q6 [facility] PRN Reason: Protocol Last Admin: 10/15/17 00:00 Dose: Not Given - Labs Labs: 10/15/17 01:42 10/15/17 01:42 PT 16.0 SECONDS (9.7-12.2) H 10/14/17 11:32 INR 1.4 10/14/17 11:32 APTT 48 SECONDS (21-34) H 10/14/17 11:32
--- NOTE | 2017-10-15 04:04 | CP.PCM.PRO ---
Pronouncement of Note - Clinical Findings Physical Exam: No Response Verbal/Painful Stimuli, Absent Peripheral Pulses{ Carotid & Femoral}, Absent Heart & Breath Sounds, No Pupillary Light Reflex, No Corneal Reflex, Pupils Fixed & Dilated, Absence of Vital Signs - Pronouncement Time Time of Pronouncement of : 03:23 - Notifications Pronouncement Notifications: Family Notified ( at bedside), Atending Notified (By the nursing) Legal Investigator Notified: Yes - Autopsy Autopsy Requested: No - [place]
[2017-10-15 08:27] VITALS: TEMP 97.3
[2017-10-15 08:55] VITALS: BP 53/24; PULSE 66
--- NOTE | 2017-10-15 08:59 | RAD ---
Chest x-ray single frontal view History: Intubated. Comparison: 10/14/2017 Findings: Lines and tubes in stable position. Mild venous congestion. Right hilar prominence. Tortuous aorta with calcification at the aortic knob. Mild cardiomegaly. Degenerative changes in the spine. Impression: Lines and tubes in stable position. Mild venous congestion. Right hilar prominence. Tortuous aorta with calcification at the aortic knob. Mild cardiomegaly.
--- NOTE | 2017-10-16 02:26 | DS ---
He was a nice man, 67 years old who came from [facility] after coding during dialysis, went to the [facility] was in the intensive care unit, had two codes and he was pronounced there, less than 24 hours in the hospital and he had end-stage kidney disease, CAD, and he . Jasmeet Gr DO
--- NOTE | 2017-10-16 10:48 | HP ---
I was not able to see him. He was a patient I know from [facility]. He was there for physical therapy. I got a phone call from the subacute rehab that during dialysis he was found to be unresponsive. They started a code there and dialysis and transferred him to the nearest hospital, which was [facility]. I was actually on my way to [facility] when he . I was not able to see him. I understand that they coded him once at [facility] and they coded him twice at [facility]. He had endstage renal disease, on dialysis. He had diabetes, peripheral arterial disease, hypertension, chronic anemia. He had a recent surgery of his foot. He had a right transmetatarsal amputation with bilateral SFA stents. He used to smoke. He had chronic anemia, CAD with two stents, and he in the hospital in the intensive care unit. Jasmeet Gr DO
[2017-10-16 11:12] VITALS: O2SAT 100
--- NOTE | 2017-10-16 14:51 | CARD ---
APPROVED REPORT EKG Measurement Heart [id number] <Conclusion> Accelerated Junctional rhythm Septal infarct, age undetermined Inferior infarct, age undetermined Low voltage Abnormal ECG
--- NOTE | 2017-10-17 17:44 | CARD ---
APPROVED REPORT EKG Measurement Heart [id number] <Conclusion> Normal sinus rhythm Low voltage limb leads Possible Right ventricular hypertrophy Possible Inferior infarct, age undetermined Abnormal ECG
== END 2017-10-15 03:23 | DRG 291 ==
LOC: C.ER 11:23 → C.9I 12:18
PROVIDERS: ADMIT Family Medicine; ATTEND Family Medicine
PROC: 5A1945Z Respiratory Ventilation, 24-96 Consecutive Hours (ICD-10-PCS; principal; 2017-10-14)
DX: I13.2 Hypertensive heart and chronic kidney disease with heart failure and with stage 5 chronic kidney disease, or end stage renal disease (principal); N18.6 End stage renal disease; R57.9 Shock, unspecified; I25.10 Atherosclerotic heart disease of native coronary artery without angina pectoris; I46.9 Cardiac arrest, cause unspecified; I50.9 Heart failure, unspecified; J44.9 Chronic obstructive pulmonary disease, unspecified; N40.0 Benign prostatic hyperplasia without lower urinary tract symptoms; R09.02 Hypoxemia; Z87.891 Personal history of nicotine dependence; Z95.5 Presence of coronary angioplasty implant and graft; Z99.2 Dependence on renal dialysis; E11.22 Type 2 diabetes mellitus with diabetic chronic kidney disease; K21.9 Gastro-esophageal reflux disease without esophagitis